=== PATIENT | male | born 1935 | race Caucasian/White ===

== ENCOUNTER 2018-11-16 20:32 | Inpatient (IN) ==
--- NOTE | 2018-11-16 21:20 | Emergency Department Note ---
Disposition Clinical Impression: Generalized weakness, Elevated troponin I level Lumbar stenosis Qualifiers: Neurogenic claudication status: without neurogenic claudication Qualified Code(s): M48.061 - Spinal stenosis, lumbar region without neurogenic claudication UTI (urinary tract infection) Qualifiers: Urinary tract infection type: acute cystitis Hematuria presence: without hematuria Qualified Code(s): N30.00 - Acute cystitis without hematuria Disposition: Admitted As Inpatient Condition: Good General Adult HPI - General Chief complaint: ED Abdominal Pain Stated complaint: weakness legs/abd pain Time Seen by Provider: 11/16/18 21:00 Source: patient, family Limitations: no limitations Nursing Notes Reviewed: Yes Vital Signs Reviewed: Yes - History of Present Illness HPI Narrative: 82-year-old male presents emergency department with concern for 2 days of lower extremity weakness. Patient states that he was so weak 2 days ago, that he fell backwards, hit the wall with his left side of his back, and slid down. He did not hit his head or lose consciousness at that time. Patient states that he has some mild right lower quadrant and right upper thigh abdominal pain when he bends over or certain way. He denies any dysuria, urinary difficulty, fevers, nausea, vomiting. Patient relates that the symptoms that he has a similar in location to when he had shingles in the past, but it does not burn as it did before. Patient reports that the pain does not radiate anywhere else. Alleviating factors are him not bending over. Pain Scale: 0 - Related Data Home Medications Medication Instructions Recorded Confirmed No Known Home Drugs 11/16/18 11/16/18 Allergies Allergy/AdvReac Type Severity Reaction Status Date / Time No Known Allergies Allergy Verified 11/16/18 20:36 All systems ED: reviewed and negative except as stated. Review of Systems: As Per HPI Constitutional: Denies: fever, chills Cardiovascular: Denies: chest pain Respiratory: Denies: cough Gastrointestinal: Reports: abdominal pain. Denies: nausea, vomiting, diarrhea Genitourinary: Reports: urgency. Denies: dysuria, testicular pain Past Medical History - Past Medical History Attestation: Yes The following information was validated with the patient. Medical history: Reports: no medical history - Social History Smoking Status: Former smoker Smokeless Tobacco Status: No Alcohol use: Reports: none Drug use: Reports: none Physical Exam - General Limitations: no limitations General appearance: alert, in no apparent distress - Head Head exam: normocephalic - Eye Eye exam: Present: EOMI - ENT ENT exam: mucous membranes moist - Neck Neck exam: Present: trachea midline - Chest Chest inspection: Present: symmetric chest wall rise - Respiratory Respiratory exam: Present: normal lung sounds bilaterally. Absent: respiratory distress, accessory muscle use - Cardiovascular Cardiovascular exam: Present: regular rate, normal rhythm, irregular rhythm - Abdominal Exam Abdominal exam: Present: soft, Non-Tender. Absent: distention, guarding, rebound, rigidity - Extremities Exam Extremities exam: Present: normal capillary refill - Back Exam Back exam: Present: full ROM - Neurological Exam Neurological exam: Present: alert, oriented X3 - Psychiatric Psychiatric exam: Present: normal affect, normal mood - Skin Skin exam: Present: warm, dry, intact, normal color. Absent: rash Course Vital Signs Temperature 98.3 F 11/16/18 20:36 Pulse Rate 77 11/16/18 20:36 Respiratory Rate 18 11/16/18 20:36 Blood Pressure 151/67 11/16/18 20:36 O2 Sat by Pulse Oximetry 95 11/16/18 20:36 Temperature 98.3 F 11/16/18 20:36 Pulse Rate 73 11/16/18 23:00 Respiratory Rate 18 11/16/18 23:00 Blood Pressure 135/68 11/16/18 23:00 O2 Sat by Pulse Oximetry 97 11/16/18 23:00 Oxygen Delivery Oxygen Delivery Room Air Medical Decision Making - [facility] Narrative Medical decision making narrative: 83-year-old male presents emergency department with concern for generalized weakness in the lower extremities with right lower quadrant abdominal pain. Patient hemodynamically stable at this time. He has a mild leukocytosis. Evidence of urinary tract infection. We will give patient Keflex. Obtain CT scan of the abdomen and pelvis without contrast which revealed fatty infiltration of the liver no evidence of any acute intra-abdominal or pelvic abnormality. We also obtain lumbar spine CT which revealed degenerative changes and compression of the thecal sac and lumbar stenosis. ECG does obtain revealed no ischemic ST changes. Patient did have an elevated troponin of 0.09. Upon questioning again, patient denies any chest pain, pressure, tightness, shortness of breath. We did provide aspirin. Patient admitted to the hospitalist for further management and observation for generalized weakness in the setting of elevated troponin urinary tract infection. Patient family agreed with plan. Patient was hemodynamically stable and did not appear to be in any distress at time of admission. Abdomen/Pelvis CT 11/16/18 21:19 IMPRESSION: Fatty infiltration of the liver. Otherwise stable noncontrast findings. D/ / Samantha Morton Cha, MD / Samantha Morton Cha, MD Interpreting Provider: Samantha Morton Cha, MD Lumbar Spine CT 11/16/18 21:19 IMPRESSION: Mild multilevel degenerative changes in the lumbar spine not unusual for a patient of this age. No evidence of an acute injury. D/ / Rogers Esparza MD / Rogers Esparza MD Interpreting Provider: Rogers Esparza MD - Lab Data Result diagrams: 11/16/18 21:15 11/16/18 21:15 Lab Results 11/16/18 11/16/18 11/16/18 Range/Units 21:15 21:15 21:15 WBC 13.9 H (4.3-11.1) K/mcL RBC 4.85 (4.19-5.50) M/mcL Hgb 15.0 (12.9-16.9) g/dL Hct 43.9 (37.5-50.1) % MCV 90.5 (83.0-100.0) fL MCH 30.9 (28.0-33.3) pg MCHC 34.2 (31.6-35.5) g/dL RDW 13.6 (11.5-14.5) % Plt Count 143 (140-400) K/mcL MPV 10.9 (9.4-12.4) fL Immature Gran % 0.4 (0-4) % Seg Neutrophils % 84.6 % Lymphocytes % 6.6 % Monocytes % 8.0 % Eosinophils % 0.1 % Basophils % 0.3 % Neutrophils # 11.7 H (1.6-8.9) K/mcL Lymphocytes # 0.9 (0.6-4.6) K/mcL Monocytes # 1.1 (0.0-1.3) K/mcL Eosinophils # 0.0 (0.0-0.6) K/mcL Basophils # 0.0 (0.0-0.2) K/mcL Sodium 136 (136-145) mEq/L Potassium 3.8 (3.5-5.1) mEq/L Chloride 101 (98-107) mEq/L Carbon Dioxide 25 (23-29) mEq/L BUN 28 H (8-23) mg/dL Creatinine 1.05 (0.70-1.30) mg/dL Est GFR ( Amer) > 60 (> 60) Est GFR (Non-Af Amer) > 60 (> 60) BUN/Creatinine Ratio 27 H (6-26) Glucose 122 H (70-105) mg/dL Calculated Osmolality 289 (280-300) Calcium 9.7 (8.6-10.3) mg/dL Total Bilirubin 1.2 H (0.3-1.0) mg/dL AST 27 (13-39) Units/L ALT 26 (7-52) Units/L Alkaline Phosphatase 73 (34-104) Units/L Troponin I 0.09 H* (< 0.04) ng/mL Serum Total Protein 7.6 (6.4-8.9) g/dL Albumin 4.5 (3.5-5.7) g/dL Globulin 3.1 (2.4-3.5) g/dL Albumin/Globulin Ratio 1.5 (1.1-2.2) Lipase 18 (11-82) Units/L Urine Color Dark Yellow (Yellow) Urine Clarity Clear (Clear) Urine pH 5.0 (5.0-8.0) pH Units Ur Specific [place] 1.030 H (1.010-1.025) Urine Protein 30 H (Neg-Trace) mg/dL Urine Glucose (UA) Normal (Normal) mg/dL Urine Ketones Trace H (Negative) mg/dL Urine Blood Negative (Negative) Urine Nitrite Negative (Negative) Urine Bilirubin Negative (Negative) Urine Urobilinogen Normal (Normal) mg/dL Ur Leukocyte Esterase Moderate H (Negative) Urine Microscopic RBC 0-3 (0-3) per hpf Urine Microscopic WBC 50-100 H (0-3) per hpf Ur Squamous Epith Cells Moderate H (None-Few) per lpf Urine Bacteria Moderate H (None-Few) per hpf Hyaline Casts None Seen (None-Few) per lpf - EKG Data EKG #1 EKG attestation: Yes I reviewed and interpreted this EKG. EKG results narrative: 21:32 Heart rate 72 bpm, MI interval 199 ms, QRS duration 124 ms, QT 398 ms, left axis deviation. Sinus rhythm with no ischemic ST changes. No new change from previous ECG. Attestation Statement - Attestation Attestation: Dr. Valenzuela note: Patient seen in conjunction with ER resident Dr. Eder Franco. Please see his charting for complete documentation. I spent [id number] time with the patient and agree with patient's treatment and disposition. Patient brought in by brother and sister at bedside for progressive 2 days of weakness causes legs to give out twice now. No focal neurological signs or symptoms. No knee change in speech or vision or any focal strength and any of the extremities. I have also worse today due to weakness. Vague urinary frequency yesterday. No emesis or dysuria or diarrhea. Patient is able to bear weight in the ER but not with a steady gait. Early urinary tract infection noted. He will be cultured and tr eated. Be admitted and stabilized improved condition.
[2018-11-16] MEDS ORDERED: 0.9 % Sodium Chloride 1,000 ML IVC ONE (21:21)
[2018-11-16 21:36] LABS: Bilirubin,Urine Negative (Negative); Blood,Urine Negative (Negative); Clarity,Urine Clear (Clear); Color,Urine Dark Yellow (Yellow); Glucose,Urine (UA) Normal (Normal); Ketones,Urine Trace mg/dL (Negative); Leukocyte Esterase,Urine Moderate (Negative); Nitrite,Urine Negative (Negative); Protein,Urine 30 mg/dL (Neg-Trace); Urobilinogen,Urine Normal (Normal)
[2018-11-16 21:38] LABS: Basophils % 0.3 %; Eosinophils % 0.1 %; Hematocrit 43.9 % (37.5-50.1); Immature Granulocytes % 0.4 % (0-4); Lymphocytes # 0.9 K/mcL (0.6-4.6); Lymphocytes % 6.6 %; Mean Corpuscular HGB Conc 34.2 g/dL (31.6-35.5); Mean Corpuscular Hemoglobin 30.9 pg (28.0-33.3); Mean Corpuscular Volume 90.5 fL (83.0-100.0); Mean Platelet Volume 10.9 fL (9.4-12.4); Monocytes # 1.1 K/mcL (0.0-1.3); Neutrophils # 11.7 K/mcL (1.6-8.9); Platelet Count 143 K/mcL (140-400); Red Blood Count 4.85 M/mcL (4.19-5.50); Red Cell Distribution Width 13.6 % (11.5-14.5); Segmented Neutrophils % 84.6 %
[2018-11-16 21:40] LABS: Bacteria,Urine Moderate per hpf (None-Few); Hyaline Casts,Urine None Seen per lpf (None-Few); RBC,Urine 0-3 per hpf (0-3); Squamous Epithelial Cell,Urine Moderate per lpf (None-Few); WBC,Urine 50-100 per hpf (0-3)
[2018-11-16 22:01] LABS: Alanine Aminotransferase 26 Units/L (7-52); Albumin 4.5 g/dL (3.5-5.7); Albumin/Globulin Ratio 1.5 (1.1-2.2); Alkaline Phosphatase 73 Units/L (34-104); Aspartate Amino Transferase 27 Units/L (13-39); BUN/Creatinine Ratio 27 (6-26); Bilirubin,Total 1.2 mg/dL (0.3-1.0); Blood Urea Nitrogen 28 mg/dL (8-23); Calcium 9.7 mg/dL (8.6-10.3); Carbon Dioxide 25 mEq/L (23-29); Chloride 101 mEq/L (98-107); Globulin 3.1 g/dL (2.4-3.5); Glucose 122 mg/dL (70-105); Lipase 18 Units/L (11-82); Osmolality,Calculated 289 (280-300); Potassium 3.8 mEq/L (3.5-5.1); Sodium 136 mEq/L (136-145); Total Protein 7.6 g/dL (6.4-8.9); eGFR For Non-African Americans > 60 (> 60)
[2018-11-16] MEDS ORDERED: cephALEXin 250 MG CAPSULE PO ONE (22:30)
[2018-11-16 23:05] LABS: Troponin I 0.09 ng/mL (< 0.04)
[2018-11-17] MEDS ORDERED: Aspirin 325 MG TABLET PO ONE (00:13)
[2018-11-17] MEDS ORDERED: Naloxone 0.4 MG/ML INJ IVP PRN (07:34)
--- NOTE | 2018-11-17 07:46 | Internal Med History&Physical ---
Date of Encounter: 11/17/18 Time of Encounter: 07:00 Internal Medicine - H&P: HPI Chief complaint: weakness Admitted From: Home Plans for Post Hospital Care: Home History of present illness: Mr. Salazar is a 83 year old male with no significant past medical history, not taking any medications presented to the emergency department with complaint of weakness. As per patient about 2 days ago he bent over to tie his shoes however was unable to get up from the floor and required increased exertion more than his baseline to get up from a squatting position. he denies falls, recent head trauma, palpitations, chest pain, numbness, loss of function of his extremities, incontinence and reports that it was just hard for him to get up. he has never had symptoms like this before. is not taking any medications, has never been diagnosed with hypertension. he had a stress test many years ago and was told that he has a "heart murmur". he denies any other cardiac history. he is active and has no difficulty walking or completing his ADLs, drove from [place] yesterday without difficulty. he denies dysuria however does report frequency and that his urine has been darker than usual. he denies fever, chills, N/v/D, PND, orthopnea, no chest pain on walking, no difficulty with gait. denies headache, vision changes. Past Med Surg Social Fam HX - Past Medical History Medical history: other Additional medical history: shingles Psychiatric history: no psych history - Past Surgical History Surgical History: cataract, herniorrhaphy Additional surgical history: left cataract - Social History Smoking Status: Former smoker Smokeless Tobacco Status: No Alcohol use: none Drug use: none Internal Medicine - H&P: Meds No Known Home Drugs 11/16/18 [History] Allergy/AdvReac Type Severity Reaction Status Date / Time No Known Allergies Allergy Verified 11/16/18 20:36 All Systems PM: A 10-system review of systems was performed and is negative for pertinent findings except as documented above in the HPI. - Constitutional Vitals: Temp Pulse Resp BP Pulse Ox 98.2 F 72 18 140/69 94 11/17/18 06:43 11/17/18 06:43 11/17/18 06:43 11/17/18 06:43 11/17/18 06:43 Exam: General: Patient is alert, oriented, no acute distress, Head: atraumatic, normocephalic, Eye: normal appearance, PERRL, no scleral icterus, no conjunctival injection ENT: mucous membranes moist, normal external ear exam Neck: normal inspection, trachea midline, full ROM, no carotid bruits Chest: normal inspection, symmetric chest rise Respiratory: Good respiratory effort. Bilateral breath sounds are clear without wheezing, crackles, or rhonchi. Cardiovascular: Regular rate and rhythm. s1 and s2 No clicks, rubs, gallops, or murmors. Abdomen: Bowel sounds present normoactive x-4 quadrants. Abdomen is soft, nondistended. no Epigastric tenderness. No guarding or rebound. No organomegaly noted, musculoskeletal: Spontaneously moving all extremities. no edema, no calf tenderness Skin: warm, dry, intact. Neuro: Alert and oriented x4. Sensation light touch intact. Cranial nerves 2- 12 is intact. Not aphasic, gait is steady, rapid hand movements intact, [id number] intact, no pronator drift, rhomberg negative Psych: Patient's affect is normal Internal Med - H&P Results - Labs CBC & Chem 7: 11/16/18 21:15 11/16/18 21:15 Labs: Short CBC 11/16/18 Range/Units 21:15 WBC 13.9 H (4.3-11.1) K/mcL Hgb 15.0 (12.9-16.9) g/dL Hct 43.9 (37.5-50.1) % Plt Count 143 (140-400) K/mcL Neutrophils # 11.7 H (1.6-8.9) K/mcL BMP 11/16/18 21:15 Sodium 136 Potassium 3.8 Chloride 101 Carbon Dioxide 25 BUN 28 H Creatinine 1.05 Glucose 122 H Calcium 9.7 Cardiac Enzymes 11/16/18 Range/Units 21:15 Troponin I 0.09 H* (< 0.04) ng/mL Liver Function 11/16/18 Range/Units 21:15 Total Bilirubin 1.2 H (0.3-1.0) mg/dL AST 27 (13-39) Units/L ALT 26 (7-52) Units/L Alkaline Phosphatase 73 (34-104) Units/L Albumin 4.5 (3.5-5.7) g/dL Urine 11/16/18 Range/Units 21:15 Urine Color Dark Yellow (Yellow) Urine Clarity Clear (Clear) Urine pH 5.0 (5.0-8.0) pH Units Ur Specific [place] 1.030 H (1.010-1.025) Urine Protein 30 H (Neg-Trace) mg/dL Urine Glucose (UA) Normal (Normal) mg/dL - EKG Data -: EKG Interpreted by Myself EKG shows normal: sinus rhythm (LAD, RBBB LAFB) - EKG Data Prior EKG available for review: yes When compared to previous EKG: there is no significant change - Impressions ITS Impressions Abdomen/Pelvis CT 11/16/18 21:19 IMPRESSION: Fatty infiltration of the liver. Otherwise stable noncontrast findings. D/ / Samantha Morton Cha, MD / Samantha Morton Cha, MD Interpreting Provider: Samantha Morton Cha, MD Lumbar Spine CT 11/16/18 21:19 IMPRESSION: Mild multilevel degenerative changes in the lumbar spine not unusual for a patient of this age. No evidence of an acute injury. D/ / Rogers Esparza MD / Rogers Esparza MD Interpreting Provider: Rogers Esparza MD - Assessment and Plan (1) Elevated troponin I level Current Visit: Yes Status: Acute Assessment and plan: rule out ACS - currently chest pain free elevated troponin 0.09 in the ED continue to follow Q6H along with EKG ASA 325 mg given in the ED continue with 81 mg daily lipid panel, TSH metoprolol 12.5 mg BID lipitor 40 mg QHS tele monitoring echocardiogram will keep NPO for possible cardiac intervention ( stress test/LHC) cardiology consulted will follow recommendations NTG Q5M PRN for chest pain (2) Lumbar stenosis Current Visit: Yes Status: Acute Assessment and plan: patient has no pain, numbness, paresthesia, bowel or bladder incontinence. Pt/Ot consulted will follow recommendations op spine surgery consult Qualifiers: Neurogenic claudication status: without neurogenic claudication Qualified Code(s): M48.061 - Spinal stenosis, lumbar region without neurogenic claudication (3) Generalized weakness Current Visit: Yes Status: Acute Assessment and plan: TSH ordered Pt/OT evaluation (4) UTI (urinary tract infection) Current Visit: Yes Status: Acute Assessment and plan: started on ceftriaxone ucx ordered Qualifiers: Urinary tract infection type: acute cystitis Hematuria presence: without hematuria Qualified Code(s): N30.00 - Acute cystitis without hematuria (5) DVT prophylaxis Current Visit: Yes Status: Acute Assessment and plan: heparin sc - Time Spent With Patient Total time spent is greater than 50% in coordination of care (as documented) at patient's floor/unit and/or counseling patient:
[2018-11-17] MEDS ORDERED: Nitroglycerin 0.4 MG TAB.SUBL SL PRN (08:28)
[2018-11-17] MEDS: cefTRIAXone 2,000 MG in Water for inj. (sterile) 20 ML 20 ML IVP SCH (08:47)
[2018-11-17] MEDS: Aspirin 81 MG TAB.CHEW PO SCH (08:47)
[2018-11-17] MEDS: 0.9 % Sodium Chloride 1,000 ML IVC SCH (08:48)
[2018-11-17 09:12] LABS: Chol/HDL Ratio 3.1 (0-4.9); Magnesium 2.3 mg/dL (1.6-2.6); Phosphorous 2.4 mg/dL (2.7-4.5); Troponin I 0.06 ng/mL (< 0.04)
[2018-11-17 09:23] LABS: Thyroid Stimulating Hormone 2.666 mcIU/mL (0.340-5.600)
--- NOTE | 2018-11-17 12:05 | Cardiology Consult Note ---
<Patricia Bess - Last Filed: 11/17/18 12:19> Date of Encounter: 11/17/18 Time of Encounter: 12:01 Assessment and Plan (1) Elevated troponin I level Current Visit: Yes Status: Acute Patient found to have elevated troponin of 0.09, 0.06 after presenting for with weakness EKG unchanged from previous, NSR, LBBB, L axis, HR 73, ME 199, QRS 124, QT 398, QTc 439, no ST elevation or depression Denies any chest pain, shortness of breath, syncope, claudication Suspect type 2 NSTEMI vs myocardial injury, possibly secondary to UTI CK mildly elevated to 248 Repeat troponin as well as CK-MB pending ECHO performed, report pending Lipid panel pending. ECHO results to guide further managment. Patient to stay on low dose aspirin, low dose metoprolol vs amlodipine if needed for HTN. If statin indicated based on lipid panel, recommend pravastatin. Continue cardiac monitoring If ECHO normal, cardiology to sign off and follow up outpatient. (2) Generalized weakness Current Visit: Yes Status: Acute Patient presents with episode of lower extremity weakness Found to have UTI as well as mild elevation of troponin Continue treatment for UTI with rocephin PT/OT were consulted by primary (3) UTI (urinary tract infection) Current Visit: Yes Status: Acute Patient found to have UTI on U/A as well as leukocytosis Suspect that this contributed to episode of weakness Continue rocephin for antibiotic coverage Qualifiers: Urinary tract infection type: acute cystitis Hematuria presence: without hematuria Qualified Code(s): N30.00 - Acute cystitis without hematuria (4) Lumbar stenosis Current Visit: Yes Status: Acute Patient presents with complaint of weakness CT spine showed diffuse demineralization with mild to moderate multilevel facet arthropathy with moderate diffuse disc bulge at L4-L5 flattening the ventral aspect of the thecal sac. Moderate L4 nerve root canal stenosis. No evidence of an acute injury Per primary, patient to follow up outpatient for further management Qualifiers: Neurogenic claudication status: without neurogenic claudication Qualified Code(s): M48.061 - Spinal stenosis, lumbar region without neurogenic claudication (5) DVT prophylaxis Current Visit: Yes Status: Acute SQ heparin Discussion w patient/family: The assessment and plan as outlined above was discussed with the patient and/or family members who expressed understanding and agreement. All questions were answered. Thank you for involving us in the care of your patient. Please call with any questions. History of Present Illness Consult date: 11/17/18 Consult reason: elevated troponin Chief complaint: weakness History of present illness: Mr. Salazar is a 83 year old male who presented with complaint of weakness. PMH of shingles, cataracts and hernia repair. He states that yesterday he was feeling weak and unable to step up into a car. His legs continued to feel weak and he slowly lowered himself to the ground. He was then unable to get up from the ground for about 30 minutes. He denies a fall, tripping over something, syncope, loss of consciousness, seizure, lightheadedness, chest pain or shortness of breath during the episode. He states today that his weakness in his legs has resolved. He admits to urinary frequency and a stiff feeling in his abdomen but denies pain. He continues to deny nausea, vomiting, fever, chills, dyphagia, chest pain, palpitations, orthopnea, PND, claudication, shortness of breath, wheezing, cough, pleuritic pain, abdominal pain, abdominal distension, diarrhea, constipation, melena, hematochezia, dysuria, hematuria, calf pain, edema, skin rash, or weakness. Past Med Surg Social [facility] - Past Medical History Medical history: other Additional medical history: shingles Psychiatric history: no psych history - Past Surgical History Surgical History: cataract, herniorrhaphy Additional surgical history: left cataract - Social History Smoking Status: Former smoker Smokeless Tobacco Status: No Alcohol use: none Drug use: none Medications and Allergies No Known Home Drugs 11/16/18 [History] Allergy/AdvReac Type Severity Reaction Status Date / Time No Known Allergies Allergy Verified 11/16/18 20:36 All Systems Review: The remainder of the systems were reviewed and are negative - Constitutional Constitutional: no fatigue, no fever(s), no frequent falls, no weakness - EENT Eyes: no loss of vision Nose, mouth and throat: no dysphagia - Cardiovascular Cardiovascular: no chest pain at rest, no chest pain with exertion, no claudication, no dyspnea at rest, no dyspnea on exertion, no lightheadedness, no orthopnea, no palpitations, no syncope - Respiratory Respiratory: no cough, no dyspnea - Gastrointestinal Gastrointestinal: no abdominal pain, no constipation, no diarrhea, no susanna tochezia, no melena - Genitourinary Genitourinary: other (Admits to frequency), no dysuria, no hematuria - Musculoskeletal Musculoskeletal: muscle weakness - Integumentary Integumentary: no erythema, no rash - Neurological Neurological: no dizziness, no focal weakness, no numbness, no tingling - Psychiatric Psychiatric: no anxiety, no depression - Hematological/Lymphatic Hematologic/Lymphatic: no easy bleeding, no easy bruising Physical Examination Vital Signs, Last 4 Hours Temp Pulse Resp BP Pulse Ox 11/17/18 11:23 98.4 F 79 16 123/69 94 General: Conversant, No Apparent Distress HEENT: Atraumatic, Normocephaly, Mucus Membranes Moist Neck: No JVD, Normal carotid pulses Cardiac: Reg Rate and Rhythm, Normal S1 and S2, Other (Mild systolic murmur) Lungs: Normal Breath Sounds, No Wheeze, Rales, Rhonchi Neuro: Alert and responsive, No focal deficits noted Abdomen: Soft, Non-Tender Skin: No rashes noted on visualized skin Musculoskeletal: No Chest Wall Tenderness Extremities: No Clubbing, No Cyanosis, No Edema, Normal Pulses Results 11/16/18 21:15 11/16/18 21:15 Lab Results 11/16/18 11/16/18 11/17/18 21:15 21:15 08:33 WBC 13.9 H Hgb 15.0 Hct 43.9 Plt Count 143 Sodium 136 Potassium 3.8 Chloride 101 Carbon Dioxide 25 BUN 28 H Creatinine 1.05 Glucose 122 H Calcium 9.7 Magnesium 2.3 Total Bilirubin 1.2 H AST 27 ALT 26 Alkaline Phosphatase 73 Troponin I 0.09 H* 0.06 H* Lipase 18 TSH 2.666 Consult Discharge Plan - Plan Referrals: Tammy Lopez, CODING CLERK [Advanced Practice Nurse] - (Appointment has been requested.) <Crystal Monsivais - Last Filed: 11/17/18 13:40> Date of Encounter: 11/17/18 - Attending Attestation Patient was seen and evaluated independently by me. Findings, assessment and plan were discussed at length with patient, questions answered. Agree with nurse practitioner's/resident's documentation. Addition as follows, 83 yoCM w/o know CV disease. P/w short-lived B/L LE weakness w/o dizzines, syncope, CP or palpitation. Imp UTI. Consulted for trop peak 0.09. ECG SR, LVH LAD IVCD (old). Tele no events. TTE pending. BP fluctuation up 160s/75, CTA, RR, no M/G/R, no LE edema. Mild leukocytosis, CMP Cr 1 A: Mild troponin elevation, likely type II or myocardial injury unclear of underlying CAD UTI P: TTE, if nol LVEF w/o RWMA, no further inpatient w/u ASA, pravastatin with cardiology clinic f/u for possible op stress test Crystal Monsivais MD, PhD Assessment and Plan Discussion w patient/family: The assessment and plan as outlined above was discussed with the patient and/or family members who expressed understanding and agreement. All questions were answered. Thank you for involving us in the care of your patient. Please call with any questions. History of Present Illness History of present illness: Mr. Salazar is a 83 year old male All Systems Review: The remainder of the systems were reviewed and are negative Physical Examination Vital Signs, Last 4 Hours Temp Pulse Resp BP Pulse Ox 11/17/18 11:23 98.4 F 79 16 123/69 94 Results 11/16/18 21:15 11/16/18 21:15 Lab Results 11/16/18 11/16/18 11/17/18 21:15 21:15 08:33 WBC 13.9 H Hgb 15.0 Hct 43.9 Plt Count 143 Sodium 136 Potassium 3.8 Chloride 101 Carbon Dioxide 25 BUN 28 H Creatinine 1.05 Glucose 122 H Calcium 9.7 Magnesium 2.3 Total Bilirubin 1.2 H AST 27 ALT 26 Alkaline Phosphatase 73 Troponin I 0.09 H* 0.06 H* Lipase 18 TSH 2.666
[2018-11-17] MEDS: *HR* Heparin 5,000 UNIT/ML VIAL SQ SCH ×2 (14:14→20:54)
--- NOTE | 2018-11-17 15:55 | Electrocardiograph Report ---
[place] [id number] Test Date: 2018-11-16 Pat Name: Emmanuel Salazar Department: [id number] Room: 3B Gender: M Court Worker: : 1935 Requested By: Eder Patino Order Number: [id number] Reading MD: Genet De La Rosa Measurements Intervals [place] Rate: 73 P: 45 PA: 199 QRS: -66 QRSD: 124 T: 87 QT: 398 QTc: 439 Interpretive Statements Sinus rhythm Left anterior fascicular block IVCD Electronically Signed On 11-17-2018 15:54:24 EDT by Genet De La Rosa
[2018-11-18] MEDS: 0.9 % Sodium Chloride 1,000 ML IVC SCH ×2 (02:11→13:06)
[2018-11-18 05:15] LABS: Basophils % 0.6 %; Eosinophils # 0.1 K/mcL (0.0-0.6); Eosinophils % 2.6 %; Hematocrit 39.4 % (37.5-50.1); Immature Granulocytes % 0.4 % (0-4); Lymphocytes # 0.9 K/mcL (0.6-4.6); Lymphocytes % 17.2 %; Mean Corpuscular HGB Conc 33.8 g/dL (31.6-35.5); Mean Corpuscular Hemoglobin 30.7 pg (28.0-33.3); Mean Platelet Volume 11.1 fL (9.4-12.4); Monocytes # 0.6 K/mcL (0.0-1.3); Monocytes % 12.3 %; Platelet Count 152 K/mcL (140-400); Red Blood Count 4.33 M/mcL (4.19-5.50); Red Cell Distribution Width 13.6 % (11.5-14.5); Segmented Neutrophils % 66.9 %
[2018-11-18 05:16] LABS: Hemoglobin 13.3 g/dL (12.9-16.9); Neutrophils # 3.4 K/mcL (1.6-8.9)
[2018-11-18 05:38] LABS: BUN/Creatinine Ratio 25 (6-26); Blood Urea Nitrogen 21 mg/dL (8-23); Calcium 8.6 mg/dL (8.6-10.3); Carbon Dioxide 24 mEq/L (23-29); Chloride 108 mEq/L (98-107); Glucose 91 mg/dL (70-105); Osmolality,Calculated 291 (280-300); Potassium 3.8 mEq/L (3.5-5.1); Sodium 139 mEq/L (136-145); eGFR For Non-African Americans > 60 (> 60)
[2018-11-18] MEDS: *HR* Heparin 5,000 UNIT/ML VIAL SQ SCH ×3 (06:01→21:01)
[2018-11-18] MEDS: cefTRIAXone 2,000 MG in Water for inj. (sterile) 20 ML 20 ML IVP SCH (07:24)
[2018-11-18] MEDS: Aspirin 81 MG TAB.CHEW PO SCH (07:24)
--- NOTE | 2018-11-18 10:47 | Internal Med Progress Note ---
Hospitalist Progress Note - Encounter Date of Encounter: 11/18/18 Time of Encounter: 10:45 - Subjective Interval History: he was seen and examined in the room, he reported muscle stiffness around the umbilical area. He stated he has no muscle weakness or muscle pain. He has no arthralgia, rash, fever, chills, night sweats, or weight loss. He has no chest pain, shortness breath, palpitation, or lightheadedness. - Exam Vitals: Temp Pulse Resp BP Pulse Ox 98.1 F 63 16 132/70 95 11/18/18 07:01 11/18/18 07:01 11/18/18 07:01 11/18/18 07:01 11/18/18 07:01 Exam: General: Patient is alert, oriented, no acute distress, Head: atraumatic, normocephalic, Eye: normal appearance, PERRL, no scleral icterus, no conjunctival injection ENT: mucous membranes moist, normal external ear exam Neck: normal inspection, trachea midline, full ROM, no carotid bruits Chest: normal inspection, symmetric chest rise Respiratory: Good respiratory effort. Bilateral breath sounds are clear without wheezing, crackles, or rhonchi. Cardiovascular: Regular rate and rhythm. s1 and s2 No clicks, rubs, gallops, or murmors. Abdomen: Bowel sounds present normoactive x-4 quadrants. Abdomen is soft, nondistended. no Epigastric tenderness. No guarding or rebound. No organom egaly noted, musculoskeletal: Spontaneously moving all extremities. no edema, no calf tenderness Skin: warm, dry, intact. Neuro: Alert and oriented x4. Sensation light touch intact. Cranial nerves 2- 12 is intact. Not aphasic, gait is steady, rapid hand movements intact, [id number] intact, no pronator drift, rhomberg negative Psych: Patient's affect is normal - Assessment and Plan (1) Generalized weakness Current Visit: Yes Status: Acute Assessment and Plan: 83-year-old male that are healthy in the past, not taking any medicine at home, presented with generalized weakness and muscle stiffness. The symptoms was transient, largely resolved now, besides mild muscle stiffness around umbilical region. Neuro exam has no upper motor neuron or lower motor neuron deficit. Labs were unremarkable except borderline low vitamin B12. Lumbar and sacral CT has no bony fracture besides mild spondylosis. Slightly elevated troponin, however, patent does not fit in acute CA. Pending echocardiogram, cardiology following. Denies history of underlying lung disease. Respiratory status stable. Vitamin B12 replaced. Pending PT/OT evaluation. (2) Elevated troponin I level Current Visit: Yes Status: Acute Assessment and Plan: 11/17 rule out ACS - currently chest pain free elevated troponin 0.09 in the ED continue to follow Q6H along with EKG ASA 325 mg given in the ED continue with 81 mg daily lipid panel, TSH metoprolol 12.5 mg BID lipitor 40 mg QHS tele monitoring echocardiogram will keep NPO for possible cardiac intervention ( stress test/LHC) cardiology consulted will follow recommendations NTG Q5M PRN for chest pain. 11/18. Level of troponin flat, not fit in the pattern of acute CA. Echocardiogram pending. Cardiology following. (3) UTI (urinary tract infection) Current Visit: Yes Status: Acute Assessment and Plan: started on ceftriaxone ucx ordered (4) DVT prophylaxis Current Visit: Yes Status: Acute Assessment and Plan: heparin sc - Time Spent with Patient Total time spent is greater than 50% in coordination of care (as documented) at patient's floor/unit and/or counseling patient: 25 - 35 minutes Plan of Care Discussed with: patient Internal Medicine: Result - Labs CBC & Chem 7: 11/18/18 04:28 11/18/18 04:28 Labs: Short CBC 11/18/18 Range/Units 04:28 WBC 5.0 D (4.3-11.1) K/mcL Hgb 13.3 D (12.9-16.9) g/dL Hct 39.4 (37.5-50.1) % Plt Count 152 (140-400) K/mcL Neutrophils # 3.4 (1.6-8.9) K/mcL BMP 11/18/18 04:28 Sodium 139 Potassium 3.8 Chloride 108 H Carbon Dioxide 24 BUN 21 Creatinine 0.85 Glucose 91 Calcium 8.6 Cardiac Enzymes 11/17/18 11/17/18 Range/Units 10:27 13:45 CK-MB (CK-2) 3.0 (0.0-5.0) ug/L Troponin I 0.04 H* (< 0.04) ng/mL Consult Discharge Plan - Plan Referrals: Tammy Lopez, REHABILITATION LIAISON [Advanced Practice Nurse] - (Appointment has been requested.) (3) UTI (urinary tract infection) Qualifiers: Urinary tract infection type: acute cystitis Hematuria presence: without hematuria Qualified Code(s): N30.00 - Acute cystitis without hematuria
--- NOTE | 2018-11-18 11:05 | Event Note ---
Date of Encounter: 11/18/18 Time of Encounter: 11:01 - Cardiology Event Note Cardiology seen and evaluated. Mild troponin in setting of weakness and fall, up to 0.09. EKG unchanged from previous. Likely demand ischemia. Echo reviewed Impressions: LVEF 65%. Normal LV chamber size, wall thickness and function. Normal right ventricular structure and function. Mild aortic regurgitation. Mild mitral regurgitation. No pulmonary hypertension. No further cardiac testing indicated. Continue medical management. Call with questions.
--- NOTE | 2018-11-18 11:18 | Electrocardiograph Report ---
[place] [id number] Test Date: 2018-11-17 Pat Name: Emmanuel Salazar Department: 113 Room: 3B31 Gender: M Risk Advisor: : [id number] Requested By: Jo Edmond Order Number: [id number] Reading MD: Patricia Bear Measurements Intervals [place] Rate: 68 P: 48 WI: 206 QRS: -62 QRSD: 121 T: 72 QT: 403 QTc: 421 Interpretive Statements SINUS RHYTHM MARKED LEFT AXIS DEVIATION [QRS AXIS < -30] MODERATE INTRAVENTRICULAR CONDUCTION DELAY [110+ ms QRS DURATION] MINIMAL VOLTAGE CRITERIA FOR LVH, CONSIDER NORMAL VARIANT NONSPECIFIC T-WAVE ABNORMALITY Electronically Signed On 11-18-2018 11:16:49 EDT by Patricia Bear
[2018-11-18 11:51] LABS: Estimated Average Glucose 114 mg/dl; Hemoglobin A1C 5.6 %
[2018-11-18] MEDS: Cyanocobalamin (B-12) 1,000 MCG TABLET PO SCH (11:52)
[2018-11-19] MEDS: 0.9 % Sodium Chloride 1,000 ML IVC SCH (02:04)
[2018-11-19] MEDS: *HR* Heparin 5,000 UNIT/ML VIAL SQ SCH (05:42)
[2018-11-19 07:01] VITALS: BP 169/84
[2018-11-19] MEDS: Cyanocobalamin (B-12) 1,000 MCG TABLET PO SCH (08:22)
[2018-11-19] MEDS: cefTRIAXone 2,000 MG in Water for inj. (sterile) 20 ML 20 ML IVP SCH (08:22)
[2018-11-19] MEDS: Aspirin 81 MG TAB.CHEW PO SCH (08:23)
--- NOTE | 2018-11-19 10:22 | Discharge Summary ---
- NOTES TO OUTPATIENT PROVIDER Notes to Outpatient Provider: f/u with PCP within 2 weeks. Orders not resulted at time of discharge: Pending orders 11/16/18 23:47 Culture,Blood [BC] Stat 11/17/18 08:33 Culture,Blood [BC] Stat Date of Encounter: 11/19/18 Time of Encounter: 10:17 - Discharge Diagnosis (1) Generalized weakness Priority: Primary Status: Acute (2) Elevated troponin I level Priority: Primary Status: Acute (3) UTI (urinary tract infection) Priority: Primary Status: Acute Qualifiers: Urinary tract infection type: acute cystitis Hematuria presence: without hematuria Qualified Code(s): N30.00 - Acute cystitis without hematuria (4) DVT prophylaxis Priority: Primary Status: Acute (5) Positive blood culture Priority: Primary Status: Acute Hospital course: Mr. Salazar is a 83 year old male with no significant past medical history, not taking any medications presented to the emergency department with complaint of weakness. As per patient about 2 days ago he bent over to tie his shoes however was unable to get up from the floor and required increased exertion more than his baseline to get up from a squatting position. he denies falls, recent head trauma, palpitations, chest pain, numbness, loss of function of his extremities, incontinence and reports that it was just hard for him to get up. he has never had symptoms like this before. is not taking any medications, has never been diagnosed with hypertension. he had a stress test many years ago and was told that he has a "heart murmur". he denies any other cardiac history. he is active and has no difficulty walking or completing his ADLs, drove from [place] yesterday without difficulty. he denies dysuria however does report frequency and that his urine has been darker than usual. he denies fever, chills, N/v/D, PND, orthopnea, no chest pain on walking, no difficulty with gait. denies headache, vision changes. While the patient in the ED, he is alert and oriented, his vital signs were stable, labs was significantly for elevated troponin and mild elevated CK. Patient was admitted for further evaluation. Serial troponin was mildly elevated at the flat level, inconsistent with acute MO. EKG showed normal sinus rhythm without acute ST-T elevation or depression. An echocardiogram was performed which revealed a normal ejection fraction, normal LV chamber size, wall thickness and a function, normal right ventricular structure and function, mild aortic regurgitation, mild mitral regurgitation, and no pulmonary hypertension. Cardiology was consulted, ACS/acute MO was thought to be unlikely. UA showed a possible UTI, urine culture grew Escherichia coli, patient was started on IV Rocephin while in the hospital. 1 over 2 sets of blood culture grew gram-positive rods, however patient does not have any signs or symptoms of systemic infection, therefore, this is very likely caused by contamination. On the discharge today, patient is alert and oriented, his vital signs were stable, afebrile, he denies any urinary symptoms, labs were unremarkable. Patient is discharged home today, he was instructed to continue oral antibiotics for 7 more days for UTI, take vitamin B12 for a month, and a follow-up with PCP as scheduled. Discharge discussed with: patient Time spent discussing smoking cessation with patient: more than 10 minutes - Time Spent with Patient Total time spent providing and/or coordinating discharge services: Time spent: Greater than 30 minutes - Discharge Medications Prescriptions: New Cephalexin [Keflex] 500 mg PO BID #14 capsule Cyanocobalamin (B-12) [Vitamin B12] 1,000 mcg PO DAILY #30 tablet Home Medications: Cephalexin [Keflex] 500 mg PO BID #14 capsule 11/19/18 [Rx] Cyanocobalamin (B-12) [Vitamin B12] 1,000 mcg PO DAILY #30 tablet 11/19/18 [Rx] Allergies/Adverse Reactions: Allergy/AdvReac Type Severity Reaction Status Date / Time No Known Allergies Allergy Verified 11/16/18 20:36 Date of admission: 11/18/18 16:13 Primary care physician: PCP NONE Consults: 11/17/18 07:38 Consult to Cardiology [CONS] Routine Comment: Consulting Provider: Cardiology Sandi Reason for Consult: elevated troponin Call Completed: No Anticipated date of discharge: 11/19/18 - Constitutional Vitals: Temp Pulse Resp BP Pulse Ox 98.1 F 65 17 169/84 94 11/19/18 07:00 11/19/18 07:00 11/19/18 07:00 11/19/18 07:00 11/19/18 07:00 General appearance: Present: A&O X 3 Exam: PHYSICAL EXAMINATION: GENERAL APPEARANCE: The patient is alert, oriented and in no acute distress. HEENT: Head is normocephalic. The sinuses are nontender. Pupils are equal and reactive. The nares are patent. Oropharynx clear without lesions. NECK: Supple without lymphadenopathy. HEART: Regular rate and rhythm. LUNGS: No crackles or wheezes are heard. ABDOMEN: Soft, nontender, nondistended with good bowel sounds heard. Inguinal area is normal. EXTREMITIES: Without cyanosis, clubbing or edema. NEUROLOGICAL: Gross nonfocal. SKIN: Warm and dry without any rash. - Patient Status Disposition: Home, Self-Care Condition: Good Functional capacity at discharge: independent ambulation Overall status at discharge: patient is progressing back to baseline - Discharge Instructions Follow Up With: Tammy Lopez, RESOURCE TECHNICIAN [Advanced Practice Nurse] - (Appointment has been requested.) - Diet and Activity Activity: increase activity as tolerated Diet: advance to your usual diet
== END 2018-11-19 13:04 | disposition home or self-care (01) | DRG 690 ==
LOC: EMEROOARM 20:32 → 3BNU 20:32
PROVIDERS: ADMIT Pediatrics; ATTEND Pediatrics